=== PATIENT | female | born 1945 | race Caucasian/White ===

== ENCOUNTER 2019-07-24 11:35 | Outpatient (CLI) | payer MEDICARE, SELFPAY ==
[2019-07-24 12:19] LABS: Alanine Aminotransferase 19 U/L (4-35); Albumin Level 4.5 g/dL (3.5-5.1); Alkaline Phosphatase 84 U/L (38-126); Aspartate Amino Transferase 32 U/L (14-36); Bilirubin,Total 0.4 mg/dL (0.2-1.3); Blood Urea Nitrogen 19 mg/dL (7-17); Calcium 9.3 mg/dL (8.4-10.2); Carbon Dioxide 28 mmol/L (22-30); Chloride 99 mmol/L (98-107); Cholesterol 214 mg/dL (0-200); Estimated Glomerular Filt Rate > 60; Glucose 95 mg/dL (65-105); HDL Direct 48 mg/dL; Potassium 4.1 mmol/L (3.4-5.0); Sodium 136 mmol/L (137-145); Triglycerides 105 mg/dL (<150)
[2019-07-24 12:30] LABS: LDL Cholesterol Direct 138 mg/dL
[2019-07-24 12:50] LABS: Vitamin D 25 Hydroxy 28.5 ng/mL
== END 2019-07-24 11:36 | disposition home or self-care (01) ==
PROVIDERS: PCP Family Medicine; Visit Provider Physician Assistant Medical
DX: E78.2 Mixed hyperlipidemia (principal); E03.9 Hypothyroidism, unspecified; E55.9 Vitamin D deficiency, unspecified
CPT/HCPCS: 36415; 80053; 80061; 82306; 84443

== ENCOUNTER 2019-08-14 09:16 | Emergency (ER) | payer MEDICARE, SELFPAY ==
--- NOTE | ~2019-08-14 | CT_ITS ---
EXAMINATION: CT abdomen pelvis wo con EXAM DATE: 08/14/2019 10:24 INDICATION: Left lower quadrant pain. Patient stated prior episode of topical iodine administration to foot causing skin to fall off. TECHNIQUE: Spiral CT of the abdomen and pelvis was performed without contrast. Axial, coronal and s agittal images were reviewed. The dose-length product (DLP) for this examination was 574.06 mGy-cm. The exposure was tailored according to patient size (auto mA exposure control), and iterative recons truction (ASIR) was used as additional dose reduction technique. There is no prior study for compari son. FINDINGS: The liver, spleen, adrenal glands and pancreas are unremarkable. The gallbladder is disten ded but otherwise unremarkable. There is no biliary duct dilation. There is no nephrolithiasis or h ydronephrosis. The uterus is not identified and has likely been surgically resected. The bladder i s unremarkable. There is no retroperitoneal or pelvic lymphadenopathy. There is mild scattered art eriosclerotic disease. There is moderate sigmoid predominant scattered colonic diverticulosis. There is inflammation along t he descending colon Although findings above are most consistent with acute diverticulitis, rarely inf lammatory cancer can have a similar appearance. Therefore recommend treating patient for acute divert iculitis and then obtaining a 2-4 week followup abdomen pelvis CT. Alternatively, if patient has not had recent colonoscopy, followup colonoscopy could be considered. The appendix is normal. There is small sliding gastroesophageal hiatal hernia. There is expected amount of colonic stool. No free intraperitoneal gas. The heart is normal in size. There are no pericardial or pleural effu sions. The lung bases are unremarkable. There are no osteoblastic or osteolytic lesions identified. IMPRESSION: 1. Findings consistent with acute uncomplicated descending colonic diverticulitis. Follow-up recomme ndation above. 2. Reports history of severe iodine allergy. Noncontrast study performed. Reviewed, dictated and finalized at location A. MIXER IMPRESSION: 1. Findings consistent with acute uncomplicated descending colonic diverticuli tis. Follow-up recommendation above. 2. Reports history of severe iodine allergy. Noncontrast study performed.
--- NOTE | ~2019-08-14 | XR_ITS ---
EXAMINATION: XR wrist RT min 3V DATE: 08/14/2019 10:31 INDICATION: Right wrist pain. TECHNIQUE: 4 views of right wrist were obtained. COMPARISON: Right wrist radiographs 08/04/2013 FINDINGS: Bone alignment is normal. No fracture. There is mild osteoarthritis of triscaphe joint and severe osteoarthritis of first carpometacarpal joint. IMPRESSION: 1. Polyarticular osteoarthritis. Reviewed, dictated and finalized at location A. ITION TECH
[2019-08-14 09:41] VITALS: BP 136/64; PULSE 84; RESP 16; TEMP 37; O2SAT 95
--- NOTE | 2019-08-14 09:57 | ED.ABDPAIN ---
HPI - Abdominal Pain General Chief Complaint: Abdominal Pain Stated Complaint: LLQ pain Time Seen by Provider: 08/14/19 09:19 Source: patient Mode of arrival: ambulatory Limitations: no limitations History of Present Illness HPI narrative: Patient is a 73-year-old female who presents with 3 days duration of intermittent left-sided abdominal pain made worse with activity and movement took Tylenol with no improvement denies any rectal bleeding melena diarrhea urinary complaints is resting comfortably in the room upon arrival in no distress presents per private vehicle denies any fever chills nausea vomiting. Denies similar occurrence. Patient also notes having injured the wrist several days prior noting mild aching pain of the right wrist Related Data Home Medications Medication Instructions Recorded Confirmed albuterol sulfate 90 mcg/actuation 2 inhalation INHALATION Q4H gm 07/24/19 aerosol inhaler atorvastatin 10 mg tablet 10 mg PO DAILY 07/24/19 melatonin 5 mg tablet 5 mg PO DAILY tablet 07/24/19 terbinafine HCl 250 mg tablet 250 mg PO DAILY 07/24/19 Allergies Allergy/AdvReac Type Severity Reaction Status Date / Time Cephalosporins Allergy Severe Anaphylactic Verified 07/24/19 09:31 Shock iodine Allergy Unknown SKIN Verified 07/24/19 09:31 PEELS OFF meperidine Allergy Unknown SEVERE Verified 07/24/19 09:31 NAUSEA/VOMITING Penicillins Allergy Unknown ANAPHYLACTIC Verified 07/24/19 09:31 REACTION povidone Allergy Unknown SKIN Verified 07/24/19 09:31 PEELS OFF Sulfa (Sulfonamide Allergy Unknown EXTENSIVE Verified 07/24/19 09:31 Antibiotics) SWELLING ESPECIALLY OF LIPS tetanus toxoid, adsorbed Allergy Unknown COMA Verified 07/24/19 09:31 Review of Systems Review of Systems: All systems reviewed & are unremarkable except as noted in HPI and below PMFSH Past Medical History Medical History (Updated 08/14/19 @ 11:00 by Albert Wang PA-C) Normal colonoscopy Surgical History Surgical History Hx of colonoscopy Social History Social History Smoking status: Never smoker Second hand tobacco smoke exposure: No Alcohol intake: current Exam Narrative: Exam Narrative: GENERAL: Well-appearing, well-nourished, and in no acute distress. HEAD: Normocephalic, atraumatic. EYES: PERRLA and EOMI. ENT: Nares clear, no rhinorrhea or epistaxis. Mucous membranes moist. CHEST: Clear to auscultation. No respiratory distress. No wheezes rales or rhonchi HEART: Regular rate and rhythm. No murmur heard. Normal peripheral pulses. ABDOMEN: Soft, left lower abdominal tenderness to palpation with voluntary guarding, nondistended, normal active bowel sounds. EXTREMITIES: Normal range of motion. No edema. SKIN: Warm, dry, no rash. NEURO: No focal deficits. Alert and oriented x3. PSYCH: Normal mood and affect. Course Course Emergency Course: Patient aware of case findings treatment plan and diagnosis agreeing to follow-up as directed or to return if symptoms worsen or concerns Vital Signs Vital signs: Vital Signs Temperature 98.6 F 08/14/19 09:41 Pulse Rate 84 08/14/19 09:41 Respiratory Rate 16 08/14/19 09:41 Blood Pressure 136/64 08/14/19 09:41 Pulse Oximetry 95 08/14/19 09:41 Temperature 98.6 F 08/14/19 09:41 Pulse Rate 84 08/14/19 09:41 Respiratory Rate 16 08/14/19 09:41 Blood Pressure 136/64 08/14/19 09:41 Pulse Oximetry 95 08/14/19 09:41 MDM - Abdominal Pain MDM Narrative Medical decision making narrative: Patient in the room in no distress aware of case findings treatment plan and diagnosis agreeing to follow-up as directed or to return if symptoms worsen or concerns. Patient with uncomplicated diverticulitis afebrile nontoxic-appearing no distress in the room resting comfortably will be discharged home with
[2019-08-14 10:12] LABS: Blood Urea Nitrogen 15 mg/dL (8-26); Estimated Glomerular Filt Rate > 60
[2019-08-14 10:25] LABS: Lactic Acid Reflex 0.6 mmol/L (0.7-2.1)
[2019-08-14] MEDS: ONDANSETRON INJ 4 MG/2 ML VIAL IV PUSH (10:34)
[2019-08-14] MEDS: FAMOTIDINE 20 MG/2 ML VIAL IV PUSH (10:34)
[2019-08-14 10:58] LABS: Basophils Absolute Auto 0.1 K/mm3 (0.0-0.1); Basophils Percent Auto 0.3 % (0.2-1.2); Eosinophils Absolute Auto 0.1 K/mm3 (0-0.3); Eosinophils Percent Auto 0.9 % (0-4.4); Hematocrit 40.6 % (37.0-47.0); Hemoglobin 12.7 g/dL (12.0-15.0); Immature Granulocyte Absolute 0.06 K/mm3 (0.00-0.031); Immature Granulocyte Percent A 0.4 % (0-0.5); Lymphocytes Absolute Auto 1.88 K/mm3 (0.9-3.2); Lymphocytes Percent Auto 12.7 % (18.3-44.2); Mean Corpuscular HGB Conc 31.3 g/dl (32-36); Mean Corpuscular Hemoglobin 28.3 pg (26-34); Mean Corpuscular Volume 90.6 fl (80-100); Mean Platelet Volume 11.6 fl (7.4-10.4); Monocytes Absolute Auto 1.2 K/mm3 (0.1-0.6); Neutrophils Absolute Auto 11.5 K/mm3 (1.3-6.7); Neutrophils Percent Auto 77.7 % (45.5-73.1); Platelet Count Result 227 k/mm3 (150-375); Red Blood Count 4.48 M/mm3 (4.2-5.4); Red Cell Distribution Width 17.2 % (11.5-14.5); White Blood Count 14.8 K/mm3 (4.5-10.0)
[2019-08-14 11:06] LABS: Alanine Aminotransferase 16 U/L (4-35); Albumin Level 4.3 g/dL (3.5-5.1); Alkaline Phosphatase 86 U/L (38-126); Aspartate Amino Transferase 27 U/L (14-36); Bilirubin,Total 0.7 mg/dL (0.2-1.3); Blood Urea Nitrogen 15 mg/dL (7-17); Calcium 9.3 mg/dL (8.4-10.2); Carbon Dioxide 30 mmol/L (22-30); Chloride 97 mmol/L (98-107); Estimated Glomerular Filt Rate > 60; Glucose 103 mg/dL (65-105); Lipase 119 U/L (23-300); Sodium 139 mmol/L (137-145)
[2019-08-14 11:55] VITALS: BP 136/72; PULSE 72; RESP 16; O2SAT 99
== END 2019-08-14 11:59 | disposition home or self-care (01) ==
PROVIDERS: Emergency Medicine Emergency Medical Services; Emergency Provider Emergency Medicine; PCP Family Medicine
DX: K57.92 Diverticulitis of intestine, part unspecified, without perforation or abscess without bleeding (principal); S63.501A Unspecified sprain of right wrist, initial encounter; X58.XXXA Exposure to other specified factors, initial encounter
CPT/HCPCS: 36415; 73110; 74176; 80053; 83605; 83690; 85025; 96374; 96375; 99284; J2405

== ENCOUNTER → 2020-03-31 14:02 | Outpatient (CLI) | payer MEDICARE, SELFPAY ==
--- NOTE | ~2020-03-31 | XR_ITS ---
EXAMINATION: XR shoulder RT min 2V DATE: 03/31/2020 14:44 INDICATION: Right shoulder pain post arthroplasty TECHNIQUE: AP internally and externally rotated, AP oblique externally rotated, axillary and transsca pular Y views of the right shoulder were obtained. COMPARISON: None FINDINGS: Noncemented reverse right total shoulder arthroplasty which is in near anatomic alignment. There is f ocal mild lucency measuring up to 2-3 mm in thickness at the tip of the humeral component (zone 4). N o other periprosthetic lucencies to suggest loosening. No fracture. Mild acromioclavicular osteoarthr itis. Postoperative changes of likely C6 corpectomy with interbody implant and anterior plate and scr ew fixation extending from C5 to C7. Visualized portions of the right lung are clear. IMPRESSION: Reverse right total shoulder arthroplasty in near-anatomic alignment with no loosening or acute osseo us abnormality. Reviewed, dictated and finalized at location A. IMPRESSION: Reverse right total shoulder arthroplasty in near-anatomic alignment with no lo osening or acute osseous abnormality.
== END ==
PROVIDERS: PCP Family Medicine; Visit Provider Orthopaedic Surgery Orthopaedic Surgery of the Spine
DX: M25.511 Pain in right shoulder (principal); Z09 Encounter for follow-up examination after completed treatment for conditions other than malignant neoplasm; Z96.611 Presence of right artificial shoulder joint
CPT/HCPCS: 73030

== ENCOUNTER 2020-04-26 01:08 | Outpatient (CLI) | payer MEDICARE, SELFPAY ==
[2020-04-26 20:51] LABS: SARS-CoV-2 RNA PCR Negative
== END 2020-04-26 01:09 | disposition home or self-care (01) ==
LOC: ANHCOVIDDT 01:09
PROVIDERS: PCP Family Medicine; Visit Provider Internal Medicine Gastroenterology
DX: Z01.812 Encounter for preprocedural laboratory examination (principal); Z20.828 Contact with and (suspected) exposure to other viral communicable diseases
CPT/HCPCS: 87635; C9803; U0003

== ENCOUNTER 2020-04-28 01:23 | Day surgery (SDC) | payer MEDICARE, SELFPAY ==
[2020-04-21 14:15] VITALS: BMI 31.4
--- NOTE | 2020-04-28 09:04 | WPDANESEPPF ---
Anes - Initial Pre Proc Eval Procedure: Operation Date: 04/28/20 10:00 Proposed Procedures p Screening Colonoscopy - Bharat Moore DO Date/Time: 04/28/20 09:04 Surgeon: Bharat Moore DO Pre Op Diagnosis: familly hx colon CA, diverticulitis Patient Data Age: 74 Gender: F Height: 1.52 m Weight: 73 kg Allergies Allergy/AdvReac Type Severity Reaction Status Date / Time Cephalosporins Allergy Severe Anaphylactic Verified 04/28/20 09:13 Shock meperidine Allergy Unknown SEVERE Verified 04/28/20 09:13 NAUSEA/VOMITING Penicillins Allergy Unknown ANAPHYLACTIC Verified 04/28/20 09:13 REACTION Sulfa (Sulfonamide Allergy Unknown EXTENSIVE Verified 04/28/20 09:13 Antibiotics) SWELLING ESPECIALLY OF LIPS tetanus toxoid, adsorbed Allergy Unknown COMA Verified 04/28/20 09:13 Home Medications Medication Instructions Recorded Confirmed Type levothyroxine 75 mcg tablet 75 mcg PO DAILY #90 tablet 03/18/20 04/28/20 Rx Patient hx anesthesia problems: none Family hx anesthesia problems: none PMFSH Past Medical History Medical History (Updated 04/28/20 @ 09:04 by Jake Almazan MD) Hypothyroidism, unspecified Mixed hyperlipidemia Normal colonoscopy Obesity STEWART (obstructive sleep apnea) Surgical History Surgical History Hx of colonoscopy Family History Family History Father Carcinoma of colon Social History Social History Smoking status: Never smoker Second hand tobacco smoke exposure: No Alcohol intake: current Substance use type: does not use Living arrangements: alone Gender identity (if verbalized by the patient): Female Sexual Orientation (if Verbalized by the Patient): Straight or Heterosexual Spiritual care concerns: No Anes - Eval Final PreProcedure Day of Procedure 04/28/20 09:04 Patient weight: obese Heart: regular rate and rhythm Lungs: clear to auscultation and normal air movement Airway: Mallampati scale class II Neurological: alert and oriented Last oral intake: >/= 8 hours ASA classification: III Emergent: no Anesthetic plan: proceed Anesthesia type and monitoring: general GIVS Informed Consent: The patient's anesthetic plan and its attendant risks and benefits were discussed with the patient/family/POA. Questions were solicited and answers provided to the satisfaction of the patient/family/POA.
[2020-04-28 09:14] VITALS: BP 137/70; PULSE 86; RESP 17; TEMP 36.6; O2SAT 98; BMI 28.5
[2020-04-28] MEDS: LACTATED RINGERS 1,000 ML 150 ML IV CONT (09:31)
--- NOTE | 2020-04-28 09:40 | PM.IMHP ---
H&P: HPI History of Present Illness Date/Time: 04/28/20 09:40 Chief complaint: familly hx colon CA, diverticulitis Narrative: Reason for visit is colonoscopy. This very pleasant lady's being seen at the request of the primary physician. Impression: History of recent diverticulitis. The patient has a strong family history of colon cancer mother, father and sister. Recommendation: Colonoscopy. History: This very pleasant lady has a history of diverticulitis. She has strong family history of colon cancer in a mother, father and sister. His GI review systems negative at this time. She is here for screening and surveillance colonoscopy. Physical examination: General: very pleasant patient in no acute distress. HEENT: Head was normocephalic sclerae is clear mouth without masses neck was supple. Heart: Rate rhythm regular without S3 or S4. Lungs: CTA. Abdomen: Soft with no guarding or rigidity. Bowel sounds were active. Neurologic: Cranial nerves 2 through 12 intact. No focal defects. No clonus. Musculoskeletal system: Revealed no joint tenderness or swelling no muscle atrophy. Extremities: Reveal no significant edema. Skin: Warm and dry with normal turgor. Mental status: intact. Patient is alert and oriented. Review of Systems Review of Systems: All systems reviewed & are unremarkable except as noted in HPI and below PMFSH Past Medical History Medical History (Updated 04/28/20 @ 09:04 by Jake Almazan MD) Hypothyroidism, unspecified Mixed hyperlipidemia Normal colonoscopy Obesity STEWART (obstructive sleep apnea) Surgical History Surgical History Hx of colonoscopy Family History Family History Father Carcinoma of colon Social History Social History Smoking status: Never smoker Second hand tobacco smoke exposure: No Alcohol intake: current Substance use type: does not use Living arrangements: alone Gender identity (if verbalized by the patient): Female Sexual Orientation (if Verbalized by the Patient): Straight or Heterosexual Spiritual care concerns: No Meds Home Medications and Allergies Home Medications Medication Instructions Recorded Confirmed Type levothyroxine 75 mcg tablet 75 mcg PO DAILY #90 tablet 03/18/20 04/28/20 Rx Allergies Allergy/AdvReac Type Severity Reaction Status Date / Time Cephalosporins Allergy Severe Anaphylactic Verified 04/28/20 09:13 Shock meperidine Allergy Unknown SEVERE Verified 04/28/20 09:13 NAUSEA/VOMITING Penicillins Allergy Unknown ANAPHYLACTIC Verified 04/28/20 09:13 REACTION Sulfa (Sulfonamide Allergy Unknown EXTENSIVE Verified 04/28/20 09:13 Antibiotics) SWELLING ESPECIALLY OF LIPS tetanus toxoid, adsorbed Allergy Unknown COMA Verified 04/28/20 09:13 Vital Signs Vital Signs - 24 hr 04/28/20 09:14 Temperature 36.6 C Pulse Rate 86 Respiratory Rate 17 Blood Pressure 137/70 Pulse Oximetry 98
[2020-04-28 10:29] VITALS: BP 117/67; PULSE 81; RESP 21; O2SAT 99
[2020-04-28 10:39] VITALS: BP 117/67; PULSE 80; RESP 21; O2SAT 99
[2020-04-28 10:49] VITALS: BP 132/71; PULSE 76; RESP 14; O2SAT 99
== END 2020-04-28 11:05 | disposition home or self-care (01) ==
PROVIDERS: PCP Family Medicine; Visit Provider Internal Medicine Gastroenterology
PROC: 0DJD8ZZ Inspection of Lower Intestinal Tract, Via Natural or Artificial Opening Endoscopic (ICD-10-PCS; CPT 45378; principal; 2020-04-28 10:00)
DX: Z12.11 Encounter for screening for malignant neoplasm of colon (principal); K55.20 Angiodysplasia of colon without hemorrhage; K57.30 Diverticulosis of large intestine without perforation or abscess without bleeding; K64.8 Other hemorrhoids; Z80.0 Family history of malignant neoplasm of digestive organs; Z87.19 Personal history of other diseases of the digestive system; E78.2 Mixed hyperlipidemia; E03.9 Hypothyroidism, unspecified; G47.33 Obstructive sleep apnea (adult) (pediatric); E66.9 Obesity, unspecified; Z68.28 Body mass index [BMI] 28.0-28.9, adult
CPT/HCPCS: G0105; J2704; J7120

== ENCOUNTER → 2020-05-26 14:41 | Outpatient (CLI) | payer MEDICARE, SELFPAY ==
--- NOTE | ~2020-05-26 | MM_ITS ---
EXAMINATION: MM screening chalo BI w mahesh HISTORY: Screening mammogram TECHNIQUE: Craniocaudal and mediolateral oblique 3-D tomosynthesis images were obtained and synthetic 2-D images were generated. CAD analysis was submitted and interpreted. COMPARISON: 10/29/2018, 10/2017, 10/11/2016 bilateral digital screening mammogram examinations BREAST PARENCHYMAL COMPOSITION: The breasts are almost entirely fatty. FINDINGS: There is no evidence of suspicious mass, calcification, or architectural distortion to sugg est malignancy in either breast. There has been no suspicious interval change. IMPRESSION: 1. No mammographic evidence of malignancy. 2. Recommend routine screening mammography in one year. BI-RADS Category 1: Negative Reviewed, dictated and finalized at location A. T PRODUCTION ASSOCIATE
== END ==
PROVIDERS: PCP Family Medicine; Visit Provider Physician Assistant Medical
DX: Z12.31 Encounter for screening mammogram for malignant neoplasm of breast (principal)
CPT/HCPCS: 77063; 77067

== ENCOUNTER 2020-06-22 13:13 | Outpatient (CLI) | payer MEDICARE, SELFPAY ==
--- NOTE | ~2020-06-22 | XR_ITS ---
EXAMINATION: XR lg joint inject/asp w image DATE: 06/22/2020 13:58 INDICATION: Right shoulder pain post reverse right total shoulder arthroplasty. Right acromioclavicul ar joint steroid injection is requested. TECHNIQUE: A time-out was performed to verify the patient's name, date of , and procedure to b e performed. The procedure including the risks, benefits, and alternatives was discussed with the pat ient. Risks discussed included bleeding and infection. The patient understood the risks and agreed to proceed. The skin overlying the right acromioclavicular joint was prepped and draped in usual steri le fashion. Anesthetic was administered with 1% lidocaine subcutaneously. A 25 G needle was advanced under fluoroscopic guidance into the joint. Injection of 0.2 mL of Omnipaque 240 confirmed intra-ar ticular position of the needle. Subsequently 1 mL of 40 mg/mL Kenalog was instilled for a total dosa ge of 40 mg Kenalog. Washout of contrast and slight interval increase in the width of the joint space was seen confirming intra-articular administration. The needle was removed and the entry site was cl eaned and dressed. There were no immediate complications. Fluoroscopy exposure time was 0.1 minutes. The total number of images was 2. FINDINGS: Real-time fluoroscopy demonstrates the needle in the right acromioclavicular joint. Patient 's pain prior to procedure:8/10. Patient's pain following the procedure: /. IMPRESSION: 1. Successful right acromioclavicular joint injection with decrease in the patient's presenting pain. Reviewed, dictated and finalized at location A. OWCASE FOLDER IMPRESSION: 1. Successful right acromioclavicular joint injection with decrease in the donna ent's presenting pain.
== END 2020-06-22 13:14 | disposition home or self-care (01) ==
PROVIDERS: PCP Family Medicine; Visit Provider Orthopaedic Surgery Orthopaedic Surgery of the Spine
DX: M25.511 Pain in right shoulder (principal)
CPT/HCPCS: 20610; 77002; J3301; Q9966

== ENCOUNTER → 2021-11-27 11:08 | Outpatient (CLI) | payer MEDICARE, SELFPAY ==
--- NOTE | ~2021-11-27 | MM_ITS ---
EXAMINATION: MM screening chalo BI w mahesh HISTORY: Screening mammogram, family history of breast cancer in her mother. TECHNIQUE: Craniocaudal and mediolateral oblique 3-D tomosynthesis images were obtained and synthetic 2-D images were generated. CAD analysis was submitted and interpreted. COMPARISON: 05/26/2020, 10/29/2018, 10/25/2017 BREAST PARENCHYMAL COMPOSITION: The breasts are almost entirely fatty. FINDINGS: There is no suspicious mass, calcification, or architectural distortion to suggest malignan cy in either breast. There has been no suspicious interval change. IMPRESSION: 1. No mammographic evidence of malignancy. 2. Recommend routine screening mammography in one year. BI-RADS Category 1: Negative Reviewed, dictated and finalized at location A.
== END ==
PROVIDERS: PCP Family Medicine; Visit Provider Family Medicine
DX: Z12.31 Encounter for screening mammogram for malignant neoplasm of breast (principal)
CPT/HCPCS: 77063; 77067

== ENCOUNTER 2022-01-22 08:35 | Outpatient (CLI) | payer MEDICARE, SELFPAY ==
--- NOTE | ~2022-01-22 | CT_ITS ---
EXAMINATION: CT brain wo con DATE: 01/22/2022 08:57 INDICATION: Confusion, abnormal mental status examination. Loss of consciousness. TECHNIQUE: Computed tomography (CT) of the head was performed without intravenous contrast. The mA wa s adjusted according to patient size. Iterative reconstruction technique was employed. Exam dose: 60 5.33 mGy-cm total exam DLP. COMPARISON: 10/18/2016 MRI brain 06/12/2014 CT brain FINDINGS: There is moderately prominent central and cortical cerebral atrophy. No intracranial mass lesion or hemorrhage or cerebrovascular accident, midline shift or mass effect i s detected. Bilateral carotid siphon internal carotid artery calcifications. There is nonspecific diminished atte nuation of the cerebral white matter, likely due to chronic small vessel ischemic changes. No subdural or epidural hematoma. 8 mm mucous retention cyst or polyp of the floor of the left sphenoid sinus. Included paranasal sinus es and mastoid air cells are otherwise normally developed and aerated. No fracture or bone destruction of the cranial vault. IMPRESSION: Cerebral atherosclerosis and chronic small vessel ischemic changes of the cerebral white matter Moderately prominent central and cortical cerebral atrophy No acute intracranial finding Reviewed, dictated and finalized at Location A. Reviewed, dictated and finalized at location B.
== END 2022-01-22 08:36 | disposition home or self-care (01) ==
LOC: ANHIMG 08:37
PROVIDERS: PCP Family Medicine; Visit Provider Family Medicine
DX: F99 Mental disorder, not otherwise specified (principal); R40.20 Unspecified coma; I67.2 Cerebral atherosclerosis; G31.89 Other specified degenerative diseases of nervous system
CPT/HCPCS: 70450

== ENCOUNTER 2022-01-23 08:33 | Outpatient (CLI) | payer MEDICARE, SELFPAY ==
--- NOTE | 2022-01-29 10:01 | WPDNEUROLOGY ---
Neurology EEG Report General Information Date of Study: 01/23/22 TEST EEG DIAGNOSIS unspecified, in addition to the history of mental disorder CONDITION OF RECORDING awake drowsy and sleep EEG NUMBER [id number] CLINICAL HISTORY patient does not know why her doctor would have ordered this particular test denies any loss of consciousness or any kind of mental disorder. EEG DESCRIPTION Background rhythm consists of low-voltage poorly organized 8 to 9 hertz per 2nd alpha admixed with low-voltage 15 to 18 hertz per 2nd beta. Low-voltage beta activity seen diffusely during drowsiness. Bilateral symmetrical sleep activity seen during sleep. Hyperventilation not done. Photic stimulation produced normal drive. Non paroxysmal. Nonfocal. Non lateralizing. IMPRESSION No significant abnormalities noted
== END 2022-01-23 08:34 | disposition home or self-care (01) ==
LOC: ANHNEURO 08:35
PROVIDERS: PCP Family Medicine; Visit Provider Family Medicine
DX: R40.20 Unspecified coma (principal)
CPT/HCPCS: 95816

== ENCOUNTER 2022-01-31 10:38 | Outpatient (CLI) | payer MEDICARE, SELFPAY ==
--- NOTE | ~2022-01-31 | US_ITS ---
EXAMINATION: US carotid duplex BI DATE: 01/31/2022 11:52 INDICATION: Syncope TECHNIQUE: Grayscale, color Doppler, and pulsed Doppler images of the cervical carotid arteries were obtained. The degree of vessel stenosis is placed in one of the following categories: normal, <50%, 5 0-69%, >=70% but less than near-occlusion, near-occlusion, or total occlusion. Note that percent sten osis relative to normal distal artery lumen diameter is indirectly measured from velocity measurement s as described by Umer, et al. Radiology 2003; 229:340-346. Notes: Normal: Peak systolic velocity <125 centimeters/sec and no plaque <50%. Peak systolic velocity <125 ( EDV <40; ICA/CCA PSV ratio <2.0; used these factors only a tandem lesions or low cardiac output or co ntralateral disease) 50-69 %: PSV 125-230 (EDV 40-100; ratio 2-4) >= 70% but less than near occlusion: PSV greater than 230 (EDV > 100; ratio> 4.0) Near Occlusion: PSV that is variable; markedly narrowed lumen Occlusion: Absent flow on color/spectral Doppler and no lumen on bose scale. COMPARISON: None. FINDINGS: RIGHT: The right common carotid artery (CCA) peak systolic velocity (PSV) is 70 cm/s. The right internal car otid artery (ICA) PSV is 76 cm/s. The right ICA end-diastolic velocity (EDV) is 14 cm/s. The right IC A/CCA PSV ratio is 1.1. The external carotid artery (ECA) PSV is 80 cm/s. There is antegrade flow in the right vertebral artery. LEFT: The left CCA PSV is 76 cm/s. The left ICA PSV is 45 cm/s. The left ICA EDV is 11 cm/s. The left ICA/C CA PSV ratio is 0.6. The ECA PSV is 77 cm/s. There is antegrade flow in the left vertebral artery. IMPRESSION: 1. Less than 50% stenosis in the right internal carotid artery by sonographic criteria. 2. Less than 50% stenosis in the left internal carotid artery by sonographic criteria. Reviewed, dictated and finalized at location A. IMPRESSION: 1. Less than 50% stenosis in the right internal carotid artery by sonographic dong sorenson. 2. Less than 50% stenosis in the left internal carotid artery by sonographic brandon summers.
== END 2022-01-31 10:39 | disposition home or self-care (01) ==
PROVIDERS: PCP Family Medicine; Visit Provider Family Medicine
DX: I67.2 Cerebral atherosclerosis (principal); I67.81 Acute cerebrovascular insufficiency; R55 Syncope and collapse; I65.23 Occlusion and stenosis of bilateral carotid arteries
CPT/HCPCS: 93880

== ENCOUNTER 2024-06-25 17:41 | Emergency (ER) | payer MEDICARE, SELFPAY ==
--- NOTE | 2024-06-25 17:47 | PC.NURSE ---
PT IN NO ACUTE DISTRESS. PULSE OX IMMEDIATELY SHOWED 99% WITH HEART RATE OF 82. SON AND DAUGHTER IN LAW WHO IS A RN DECLINED TO HAVE PT STAY TO BE EVALUATED SINCE SHE ISN'T HAVING ANY C/O.
== END 2024-06-25 19:20 | disposition left against medical advice (07) ==
PROVIDERS: PCP Family Medicine
DX: Z53.21 Procedure and treatment not carried out due to patient leaving prior to being seen by health care provider (principal)
CPT/HCPCS: 99199